=== PATIENT | male | born 1960 ===

== ENCOUNTER 2017-11-30 00:26 | Inpatient (IN) | payer OTHER ==
[~2017-11-30] VITALS: Ht 177.8 cm; Wt 93.4 kg
[2017-11-30] VITALS (11 sets, daily range): BP systolic 108–148; BP diastolic 55–94
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
[2017-11-30] MEDS ORDERED: LIDOCAINE/SOD BICARB 8.4% SYR ID ONE (12:15)
[2017-11-30] MEDS ORDERED: cloNIDine EPIDUR INJ 100MCG/ML 40 MCG, ROPIVACAINE 0.5% 20 ML VIAL 25 ML, EPINEPHrine H... INJ ONE (12:15)
[2017-11-30] MEDS ORDERED: ACETAMINOPHEN 500 MG TAB PO ONE (12:15)
[2017-11-30] MEDS ORDERED: NORMOSOL R SOLN(*) 1000 ML BAG 1,000 ML IV PRN ×2 (12:15→15:10)
[2017-11-30] MEDS ORDERED: PREGABALIN 150 MG CAPSULE PO ONE (12:15)
[2017-11-30] MEDS ORDERED: MIDAZOLAM 2 MG/2 ML VIAL IVP PRN (12:15)
[2017-11-30] MEDS ORDERED: TRANEXAMIC AC 1000 MG/10ML SDV 1,000 MG in DEXTROSE 5% 50 ML BAG 50 ML IV ONE (12:15)
[2017-11-30] MEDS ORDERED: CELECOXIB 200 MG CAP PO ONE (12:15)
[2017-11-30] MEDS ORDERED: ceFAZolin(*) 2GM/D5W 50ML 50 ML IVPB ONE (12:15)
[2017-11-30] MEDS ORDERED: FAMOTIDINE 20 MG TAB PO ONE (12:15)
[2017-11-30] MEDS ORDERED: PROPOFOL EMUL(*) 10MG/ML 20 ML 20 ML ONE (13:46)
[2017-11-30] MEDS ORDERED: DEXAMETHASONE SOD PHOS 10MG/ML ONE (13:46)
[2017-11-30] MEDS ORDERED: ONDANSETRON 4 MG/2 ML VIAL ONE (13:46)
[2017-11-30] MEDS ORDERED: BISACODYL 10 MG SUPP PR PRN (15:10)
[2017-11-30] MEDS ORDERED: diphenhydrAMINE 50 MG/ML VIAL IVP PRN (15:10)
[2017-11-30] MEDS ORDERED: MAGNESIUM HYDROXIDE* 30ML UDCP PO PRN (15:10)
[2017-11-30] MEDS ORDERED: PROMETHAZINE 25 MG/ML 1 ML AMP IVP PRN (15:10)
[2017-11-30] MEDS ORDERED: ACETAMINOPHEN 325 MG TAB PO PRN (15:10)
[2017-11-30] MEDS ORDERED: BENZOCAINE/MENTHOL 1 EACH LOZG PO PRN (15:10)
[2017-11-30] MEDS ORDERED: diphenhydrAMINE 25 MG CAP PO PRN (15:10)
[2017-11-30] MEDS ORDERED: FLUSH 10 ML SYR IVP PRN (15:10)
[2017-11-30] MEDS ORDERED: ZOLPIDEM TARTRATE 5 MG TAB PO PRN (15:10)
--- NOTE | 2017-11-30 15:40 | RADIOLOGY IMAGING REPORT ---
FACILITY: [facility] [place] PATIENT NAME: Nelson Cason : 1960 MR: [id number] V: [id number] EXAM DATE: ORDERING PHYSICIAN: CODY MANZANO TECHNOLOGIST: Location: [facility] Patient: Nelson Cason : 1960 Visit/Account:[id number] Date of Sevice: 11/30/2017 Right knee Indication: Total knee arthroplasty Comparison: None available Findings: Two views demonstrate anatomic alignment status post right total knee arthroplasty. Components are w ell seated align appropriately. Expected soft tissue findings. Findings indicative of old ACL repai r. IMPRESSION: 1. Appropriate appearance status post right total knee arthroplasty Report Dictated By: Orestes Davis MD at 11/30/2017 3:35 PM Report E-Signed By: Orestes Davis MD at 11/30/2017 3:36 PM [id number]
[2017-11-30] MEDS: CELECOXIB 200 MG CAP PO SCH (16:17)
--- NOTE | 2017-11-30 16:45 | Hospitalist Consultation ---
History of Present Illness Requesting Physician Dr. Castillo Reason for Consult Medical Management Chief Complaint s/p right total knee replacement History of Present Illness He was admitted s/p right total knee replacement. It is reported the surgery went well and without complication. History Home Meds No Active Prescriptions or Reported Meds Allergies: Coded Allergies: hydrocodone (Verified Allergy, Severe, ITCHY, HIVES , 11/23/17) Uncoded Allergies: HAY FEVER (Allergy, Mild, ITCHY, 11/23/17) Patient History: FH: heart attack FATHER FH: thyroid disease FATHER BROTHER OR SISTER Heart valve abnormality BROTHER OR SISTER Hx Smoking: Yes Smoking Status: Former Smoker Exposure to Second Hand Smoke?: No When Quit Tobacco?: QUIT SMOKING IN 1997 Caffeine Intake: Tea Caffeine/Cups Per Day: OCCASSIONAL Hx Alcohol Use: Yes Alcohol Used: Beer Hx Substance Use Disorder: No Social Drug Use: Never History of IV Drug Use: No Review of Systems All Systems Reviewed/Normal: Yes, Except as Noted Exam Vital Signs Vital Signs Date Time Temp Pulse Resp B/P (MAP) Pulse Ox O2 Delivery O2 Flow Rate FiO2 11/30/17 16:15 63 128/78 (95) 96 11/30/17 16:05 Nasal Cannula 1.0 11/30/17 15:57 97.6 12 General Appearance: Alert, Awake, No Acute Distress, Afebrile Neuro: No Gross deficits Cardiovascular: Regular Rate and Rhythm Respiratory: No Respiratory Distress, Clear to Auscultation GI: Abd Soft and Non-Tender Psych: Alert & Oriented X3, Appropriate Mood & Affect Assessment and Plan Problems: (1) Status post total right knee replacement Status: Acute Assessment & Plan: Followed by Dr. Castillo. He will be placed on Aspirin 325mg daily for DVT prophylaxis. He denies history of DVT or PE. He has no medical problems. We will continue to follow patient for any medical needs. Venous Thromboembolism Antithrombotics Is Pt On Any Antithrombotics?: No Exam Sepsis Risk: No Definite Risk FORD CANO SEARCH ENGINE OPTIMIZATION CONSULTANT Nov 30, 2017 16:45
[2017-11-30] MEDS: DIAZEPAM 5 MG TAB PO PRN (20:03)
[2017-11-30] MEDS: ceFAZolin(*) 1 GM VIAL 1 GM in NS(*) 0.9% 100 ML ADDVANT BAG 100 ML IVPB SCH (20:18)
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
[2017-12-01] MEDS: ceFAZolin(*) 1 GM VIAL 1 GM in NS(*) 0.9% 100 ML ADDVANT BAG 100 ML IVPB SCH ×2 (05:12→12:49)
[2017-12-01 05:21] VITALS: BP 141/76
[2017-12-01 07:01] VITALS: BP 138/85
[2017-12-01] MEDS: CELECOXIB 200 MG CAP PO SCH ×2 (08:24→16:37)
[2017-12-01] MEDS: ASPIRIN 325 MG TAB PO SCH (08:24)
--- NOTE | 2017-12-01 10:21 | Hospitalist Progress Note ---
Subjective Progress Notes Subjective He has no concerns this morning. He had no acute events overnight. Patient Complains of: Cardiovascular: No: Chest Pain Respiratory: Shortness of Breath Physical Exam Vital Signs Date Time Temp Pulse Resp B/P (MAP) Pulse Ox O2 Delivery O2 Flow Rate FiO2 12/01/17 07:09 94 12/01/17 07:09 Room Air 12/01/17 07:01 98.0 71 16 138/85 (102) 11/30/17 23:42 4.0 Intake and Output 12/02/17 06:59 Intake Total 240 ml Balance 240 ml Intake Oral 240 ml # Voids 1 General Appearance: Alert, Awake, No Acute Distress, Afebrile Neuro: No Gross deficits Cardiovascular: Regular Rate and Rhythm Respiratory: No Respiratory Distress, Clear to Auscultation GI: Soft and Non-Tender Psych: Alert & Oriented X3, Appropriate Mood & Affect Assessment and Plan Problems: (1) Status post total right knee replacement Status: Acute Assessment & Plan: Followed by Dr. Castillo. He will be placed on Aspirin 325mg daily for DVT prophylaxis. He denies history of DVT or PE. He has no medical problems. We will continue to follow patient for any medical needs. 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
[2017-12-01 10:49] VITALS: Ht 177.8 cm; Wt 93.4 kg
[2017-12-01 11:14] VITALS: BP 138/77
[2017-12-01] MEDS: DIAZEPAM 5 MG TAB PO PRN (13:39)
[2017-12-01 14:41] VITALS: BP 134/68
[2017-12-01 20:11] VITALS: BP 143/76
[2017-12-01 22:32] VITALS: BP 142/70
[2017-12-02 04:38] VITALS: BP 133/76
[2017-12-02] MEDS ORDERED: ASPI-757 PO (07:43)
[2017-12-02 07:57] VITALS: BP 138/76
[2017-12-02] MEDS: ASPIRIN 325 MG TAB PO SCH (08:25)
[2017-12-02] MEDS: CELECOXIB 200 MG CAP PO SCH (08:25)
[2017-12-02] MEDS ORDERED: OXYC-373 PO (08:47)
--- NOTE | 2017-12-02 09:09 | Hospitalist Progress Note ---
Subjective Progress Notes Subjective He has no concerns this morning. He states he is ready to go home. Patient Complains of: Cardiovascular: No: Chest Pain Respiratory: No: Shortness of Breath Physical Exam Vital Signs Date Time Temp Pulse Resp B/P (MAP) Pulse Ox O2 Delivery O2 Flow Rate FiO2 12/02/17 07:57 98.0 69 16 138/76 (96) 93 Room Air 12/02/17 04:38 3.0 Intake and Output 12/03/17 06:59 # Voids 1 General Appearance: Alert, Awake, No Acute Distress, Afebrile Neuro: No Gross deficits Cardiovascular: Regular Rate and Rhythm Respiratory: No Respiratory Distress, Clear to Auscultation GI: Soft and Non-Tender Psych: Alert & Oriented X3, Appropriate Mood & Affect Assessment and Plan Problems: (1) Status post total right knee replacement Status: Acute Assessment & Plan: Followed by Dr. Castillo. He will be placed on Aspirin 325mg daily for DVT prophylaxis. He denies history of DVT or PE. Exam Sepsis Risk: No Definite Risk FORD CANO B2B SALES PROFESSIONAL Dec 02, 2017 09:09
== END 2017-12-02 10:00 | disposition home or self-care (01) | DRG 470 ==
LOC: OR 00:26 → MED 15:55
PROVIDERS: ADMIT Orthopaedic Surgery; ATTEND Orthopaedic Surgery
PROC: 0SPC04Z Removal of Internal Fixation Device from Right Knee Joint, Open Approach (ICD-10-PCS; 2017-11-30)
PROC: 0SRC0J9 Replacement of Right Knee Joint with Synthetic Substitute, Cemented, Open Approach (ICD-10-PCS; principal; 2017-11-30 12:46)
DX: M17.31 Unilateral post-traumatic osteoarthritis, right knee (principal); F17.220 Nicotine dependence, chewing tobacco, uncomplicated; Z88.5 Allergy status to narcotic agent
CPT/HCPCS: 36415; 85610; 86850; 86900; 86901; 97161; J0171; J0690; J0735; J1100; J1885; J2250; J2405; J2704; J2795; J7050; J7060; Q0163